=== PATIENT | female | born 1980 | race Caucasian/White ===

== ENCOUNTER 2019-11-19 13:08 | Emergency (ER) | payer OTHER ==
[~2019-11-19] VITALS: Ht 167.6 cm; Wt 65.8 kg
[2019-11-19] MEDS ORDERED: Tamiflu75 MG PO (13:52)
[2019-11-19] MEDS ORDERED: Prozac40 MG PO (13:53)
[2019-11-19] MEDS ORDERED: Ativan1 MG PO (13:54)
== END 2019-11-19 13:56 | disposition home or self-care (01) ==
LOC: ER 13:08
DX: J11.1 Influenza due to unidentified influenza virus with other respiratory manifestations (principal); Z88.5 Allergy status to narcotic agent
CPT/HCPCS: 99282

== ENCOUNTER 2020-02-14 21:46 | Emergency (ER) | payer OTHER ==
[~2020-02-14] VITALS: Ht 167.6 cm; Wt 68.0 kg
[~2020-02-14 21:46] MED LIST: Ativan1 MG PO; Prozac40 MG PO; Tamiflu75 MG PO
== END 2020-02-15 01:31 | disposition home or self-care (01) ==
LOC: ER 21:46
DX: S03.00XA Dislocation of jaw, unspecified side, initial encounter (principal); R00.0 Tachycardia, unspecified; Z88.5 Allergy status to narcotic agent; Z79.899 Other long term (current) drug therapy; X58.XXXA Exposure to other specified factors, initial encounter
CPT/HCPCS: 21480; 96374-59; 96375-59; 99282-25; J1885; J3360